=== PATIENT | male | born 1965 | race Caucasian/White ===

== ENCOUNTER 2020-08-26 17:13 | Inpatient (IN) | payer OTHER ==
[2020-08-26 17:30] VITALS: BMI 17.8
[2020-08-26] MEDS ORDERED: FAMOTIDINE 20 MG/50 ML IVPB 20 MG/50 ML MG IVPB ONE ×2 (18:00→18:24)
[2020-08-26] MEDS ORDERED: LIDOCAINE VISCOUS 2% ORAL/TOP 20 ML UNIT-DOSE CUP MM ONE (18:00)
[2020-08-26] MEDS ORDERED: MAG HYDROX/AL HYDROX/SIMETH 30 ML UNIT-DOSE CUP PO ONE (18:00)
[2020-08-26] MEDS ORDERED: ACETAMINOPHEN 1000 MG/100 ML VIAL (NON FORMULARY) IVPB ONE (18:01)
[2020-08-26] MEDS ORDERED: ACETAMINOPHEN INJECTION 100 ML IVPB ONE (18:24)
[2020-08-26] MEDS ORDERED: LIDOCAINE VISCOUS 2% ORAL/TOP 20 ML UNIT-DOSE CUP ONE (18:24)
[2020-08-26] MEDS ORDERED: MAG HYDROX/AL HYDROX/SIMETH 30 ML UNIT-DOSE CUP ONE (18:24)
[2020-08-26 19:02] LABS: BASO % 1.2 % (0-2.0); EOS % 1.8 % (0-4.5); HEMATOCRIT 35.7 % (35.4-49); HEMOGLOBIN 12.1 GM/dL (11.7-16.9); LYMPH % 42.8 % (8-40); MCH 32.4 pg (25.7-33.7); MCHC 33.8 g/dl (32.0-35.9); MEAN CELL VOLUME 95.7 fl (80-96); MEAN PLT VOLUME 8.6 fl (7.5-11.1); MONO % 10.5 % (3.8-10.2); NEUT % 43.7 % (42.8-82.8); PLATELET COUNT 269 K/MM3 (134-434); RBC 3.73 M/mm3 (4.00-5.60); WHITE BLOOD COUNT 5.3 K/mm3 (4.0-10.0)
[2020-08-26 19:12] LABS: INR 1.06 (0.83-1.09)
[2020-08-26 19:14] LABS: ACTIVATED PTT 24.8 SECONDS (25.2-36.5)
[2020-08-26 19:29] LABS: CHLORIDE 106 mmol/L (98-107); SODIUM 141 mmol/L (136-145)
[2020-08-26 19:31] LABS: CALCIUM 8.3 mg/dL (8.5-10.1)
[2020-08-26 19:32] LABS: ALBUMIN 3.2 g/dl (3.4-5.0); ANION GAP 4 MMOL/L (8-16); BLOOD UREA NITROGEN 10.2 mg/dL (7-18); CO2 32 mmol/L (21-32); GLUCOSE,RANDOM 81 mg/dL (74-106); LIPASE 148 U/L (73-393)
[2020-08-26 19:35] LABS: CREATININE 0.8 mg/dL (0.55-1.3); SGOT/AST 13 U/L (15-37); SGPT/ALT 56 U/L (13-61)
[2020-08-26 19:36] LABS: BILIRUBIN,TOTAL 0.2 mg/dL (0.2-1); TOT PROT 6.5 g/dl (6.4-8.2)
[2020-08-26 19:38] LABS: ALK PHOS 67 U/L (45-117)
[2020-08-26] MEDS ORDERED: PANTOPRAZOLE SODIUM 40 MG VIAL IVPUSH ONE (22:55)
[2020-08-26] MEDS ORDERED: SODIUM CHLORIDE 0.9% 500 ML INFUS.BAG IV ONE (23:09)
[2020-08-26] MEDS ORDERED: PANTOPRAZOLE SODIUM 40 MG VIAL ONE (23:13)
[2020-08-27 05:21] VITALS: TEMP 97.3
[2020-08-27 05:59] LABS: BASO % 1.2 % (0-2.0); EOS % 2.4 % (0-4.5); HEMATOCRIT 34.5 % (35.4-49); HEMOGLOBIN 11.9 GM/dL (11.7-16.9); LYMPH % 51.3 % (8-40); MCH 32.6 pg (25.7-33.7); MCHC 34.4 g/dl (32.0-35.9); MEAN CELL VOLUME 94.9 fl (80-96); MEAN PLT VOLUME 8.6 fl (7.5-11.1); NEUT % 35.1 % (42.8-82.8); PLATELET COUNT 259 K/MM3 (134-434); RBC 3.64 M/mm3 (4.00-5.60); RDW 13.1 % (11.9-15.9); WHITE BLOOD COUNT 5.7 K/mm3 (4.0-10.0)
[2020-08-27 06:20] LABS: ALBUMIN 3.3 g/dl (3.4-5.0); BLOOD UREA NITROGEN 8.6 mg/dL (7-18)
[2020-08-27 06:23] LABS: CREATININE 0.8 mg/dL (0.55-1.3)
[2020-08-27 06:25] LABS: BILIRUBIN,TOTAL 0.4 mg/dL (0.2-1); TOT PROT 6.2 g/dl (6.4-8.2)
[2020-08-27 12:03] VITALS: BP 106/64; PULSE 44
[2020-08-27 16:02] LABS: PH,URINE 5.5 (5.0-8.0); URINE APPEARANCE CLEAR; URINE BILIRUBIN NEGATIVE (NEGATIVE); URINE COLOR YELLOW; URINE GLUCOSE (UA) NEGATIVE (NEGATIVE); URINE KETONE NEGATIVE (NEGATIVE); URINE LEUK ESTERASE NEGATIVE (NEGATIVE); URINE NITRITE NEGATIVE (NEGATIVE); URINE PROTEIN NEGATIVE (NEGATIVE); URINE UROBILINOGEN 0.2 mg/dL (0.2-1.0)
== END 2020-08-27 18:57 | disposition home or self-care (01) | DRG 253 ==
LOC: JER 17:13 → JERBED 22:33
PROVIDERS: ADMIT Hospitalist; ATTEND Family Medicine
DX: K92.2 Gastrointestinal hemorrhage, unspecified (principal); M54.30 Sciatica, unspecified side; R63.4 Abnormal weight loss; Z68.1 Body mass index [BMI] 19.9 or less, adult
CPT/HCPCS: 36415; 71045-TC-FY; 74177-TC; 80053; 81003; 83690; 84436; 84443; 84479; 84484; 85025; 85610; 85730; 86850; 86900; 86901; 93005; 93010; 99285-25; C9803; J0131; Q9967; U0003; U0005

== ENCOUNTER 2020-10-12 04:45 | Day surgery (SDC) | payer OTHER ==
[2020-10-11 14:01] VITALS: BMI 19.5
[2020-10-12 11:52] VITALS: TEMP 97.1
[2020-10-12 12:18] VITALS: PULSE 44
[2020-10-12 15:25] VITALS: BP 104/67
== END 2020-10-12 13:27 | disposition home or self-care (01) ==
LOC: JASU-ENDO 04:45
PROVIDERS: ATTEND Internal Medicine Gastroenterology
PROC: 0DB78ZX Excision of Stomach, Pylorus, Via Natural or Artificial Opening Endoscopic, Diagnostic (ICD-10-PCS; 2020-10-12)
PROC: 0DJD8ZZ Inspection of Lower Intestinal Tract, Via Natural or Artificial Opening Endoscopic (ICD-10-PCS; principal; 2020-10-12 11:00)
DX: Z12.11 Encounter for screening for malignant neoplasm of colon (principal); K26.3 Acute duodenal ulcer without hemorrhage or perforation; K29.60 Other gastritis without bleeding; B96.81 Helicobacter pylori [H. pylori] as the cause of diseases classified elsewhere; K31.5 Obstruction of duodenum; K64.8 Other hemorrhoids; R10.13 Epigastric pain; R63.4 Abnormal weight loss; Z68.1 Body mass index [BMI] 19.9 or less, adult
CPT/HCPCS: 43239; G0121

== ENCOUNTER 2021-03-08 05:19 | Day surgery (SDC) | payer OTHER ==
[2021-03-07 12:07] VITALS: BMI 21.7
[2021-03-08] MEDS ORDERED: KETAMINE HCL 200 MG/20 ML VIAL ONE (07:04)
[2021-03-08 08:36] VITALS: TEMP 98
[2021-03-08 08:57] VITALS: PULSE 59
[2021-03-08 09:39] VITALS: BP 140/68
== END 2021-03-08 10:00 | disposition home or self-care (01) ==
LOC: JASU-ENDO 05:19
PROVIDERS: ATTEND Internal Medicine Gastroenterology
PROC: 0DB68ZX Excision of Stomach, Via Natural or Artificial Opening Endoscopic, Diagnostic (ICD-10-PCS; 2021-03-08)
PROC: 0DB98ZX Excision of Duodenum, Via Natural or Artificial Opening Endoscopic, Diagnostic (ICD-10-PCS; principal; 2021-03-08 08:00)
DX: Z13.810 Encounter for screening for upper gastrointestinal disorder (principal); K31.89 Other diseases of stomach and duodenum; K29.50 Unspecified chronic gastritis without bleeding